=== PATIENT | female | born 1980 | race Caucasian/White ===

== ENCOUNTER → 2017-11-13 | Outpatient (REF) | payer BC ==
[2017-11-13 23:04] LABS: HCG, SERUM QUANTITATIVE 25803 MIU/ML
== END ==
LOC: M LAB REF 11-14 14:59
DX: N91.2 Amenorrhea, unspecified (principal)

== ENCOUNTER 2017-12-18 16:15 | Emergency (ER) | payer OTHER, BC ==
[2017-12-18] MEDS: D5W/0.45% SODIUM CHLORIDE 1,000 ML IV (16:45)
[2017-12-18] MEDS: NS 1,000 ML IV (17:09)
[2017-12-18] MEDS: PROMETHAZINE INJ 25 MG/ML VIAL (J2550) IV (17:09)
[2017-12-18 17:16] LABS: AMORPHOUS SEDIMENT RFX SMALL (NEGATIVE); KETONE, URINE AUTO RFX 1+ mg/dL (NEGATIVE); LEUKOCYTE ESTERASE UR AUTO RFX NEGATIVE (NEGATIVE); MUCUS, URINE RFX SMALL (NEGATIVE); NITRITE, URINE AUTO RFX NEGATIVE (NEGATIVE); RBC, URINE AUTO RFX 18 /HPF (0-3); SPECIFIC GRAVITY UR AUTO RFX 1.019 (1.002-1.035); SQUAM EPITHELIAL CELL UR AURFX 3 /HPF (0-6); WBC, URINE AUTO RFX 0 /HPF (0-3)
[2017-12-18 17:31] LABS: ANION GAP 8 MEQ/L (8-16); BLOOD UREA NITROGEN 8 MG/DL (7-18); CALCIUM LEVEL 9.1 MG/DL (8.5-10.1); CARBON DIOXIDE LEVEL 27 MEQ/L (21-32); CHLORIDE LEVEL 103 MEQ/L (98-107); CREATININE FOR GFR 0.63 MG/DL (0.55-1.30); GLOMERULAR FILTRATION RATE > 60.0 (>60); GLUCOSE, FASTING 79 MG/DL (70-100); POTASSIUM SERUM 4.1 MEQ/L (3.5-5.1); SODIUM LEVEL 138 MEQ/L (136-145)
== END 2017-12-18 19:38 | disposition home or self-care (01) ==
LOC: M ED 16:15
DX: O23.41 Unspecified infection of urinary tract in pregnancy, first trimester (principal); R82.71 Bacteriuria; Z3A.12 12 weeks gestation of pregnancy; O99.611 Diseases of the digestive system complicating pregnancy, first trimester; K50.90 Crohn's disease, unspecified, without complications; K52.9 Noninfective gastroenteritis and colitis, unspecified; Z93.3 Colostomy status
CPT/HCPCS: 80048

== ENCOUNTER → 2018-01-02 | Outpatient (CLI) | payer OTHER, MEDICAID ==
[2018-01-02 12:20] LABS: BASO # 0.1 10^3/uL (0.0-0.2); BASO % 0.5 % (0.0-1.0); EOS # 0.1 10^3/uL (0.0-0.50); EOS % 1.3 % (0.0-3.0); HEMATOCRIT 40.1 % (36.0-47.0); HEMOGLOBIN 13.8 g/dl (12.0-15.5); IMMATURE GRANULOCYTE % 0.3 % (0-3.0); LYMPH # 2.4 10^3/uL (1.5-4.5); LYMPH % 22.2 % (24.0-44.0); MEAN CORPUSCULAR HEMOGLOBIN 29.4 pg (27.0-33.0); MEAN CORPUSCULAR HGB CONC 34.4 g/dl (32.0-36.5); MEAN CORPUSCULAR VOLUME 85.3 fl (80.0-96.0); MONO # 0.5 10^3/uL (0.0-0.8); MONO % 4.7 % (0.0-5.0); NEUTROPHILS # 7.8 10^3/uL (1.8-7.7); PLATELET COUNT, AUTOMATED 240 10^3/uL (150-450); RED CELL DISTRIBUTION WIDTH 12.7 % (11.5-14.5); WHITE BLOOD COUNT 10.9 10^3/uL (4.0-10.0)
[2018-01-02 13:16] LABS: HEPATITIS C VIRUS ABY INDEX 0.1 INDEX (<0.8)
[2018-01-02 13:16] LABS: HBsAg Prenatal NEGATIVE (NEGATIVE); HIV 1&2 SCREEN CENTAUR NEGATIVE (NEGATIVE); RUBELLA IgG QUALITATIVE IMMUNE (IMMUNE)
[2018-01-02 14:02] LABS: CHLAMYDIA DNA AMPLIFICATION NEGATIVE (NEGATIVE); GC DNA AMPLIFICATION NEGATIVE (NEGATIVE)
== END ==
LOC: M WUC 09:25
DX: Z34.00 Encounter for supervision of normal first pregnancy, unspecified trimester (principal); Z36.89 Encounter for other specified antenatal screening; Z3A.10 10 weeks gestation of pregnancy
CPT/HCPCS: 86762

== ENCOUNTER → 2018-02-01 | Outpatient (CLI) | payer OTHER | LOC: M SMT 11:06 | DX: Z36.89 Encounter for other specified antenatal screening (principal); Z3A.18 18 weeks gestation of pregnancy | CPT/HCPCS: 76811 ==

== ENCOUNTER → 2018-02-27 | Outpatient (CLI) | payer OTHER ==
[~2018-02-27] MED LIST: KEFL500C17 PO; PREN1TAB18 PO; PROM25TA12 PO; ZOFR4TAB14 PO
--- NOTE | 2018-02-28 04:23 | REP ---
Clinical: Anatomical evaluation. Comparison: 02/01/2018 . Findings: Examination demonstrates a single live intrauterine in transverse (head to maternal right) presentation. motion is identified by technologist. Placenta is noted posterior and grade grade 1 without evidence for placenta previa or abruption. Amniotic fluid volume is normal. Cervix measures 5.0 cm in length and appears closed. No evidence for nuchal cord. Gestational age by LMP 22 weeks 1 day with MATT 07/02/2018 . Gestational age by current measurements 22 weeks 4 day with MATT 06/29/2018 . FHR equals 147 beats per minute. Estimated weight 545 grams ( 69th percentile). Anatomical assessment demonstrates normal structures including cranium, choroid plexus, cavum, cerebellum/posterior fossa, facial features, lungs, four-chamber heart/ left ventricular outflow tract, diaphragm, stomach, cord insertion/three-vessel cord, bladder, spine, and extremities. Limited evaluation of the right cardiac ventricular outflow tract again noted along with bilateral renal pelviectasis up to 4 mm. Impression: Single live intrauterine in transverse lie demonstrating appropriate interval growth. Limited evaluation of the right cardiac ventricular outflow tract along with mild bilateral renal pelviectasis noted. Remainder of the anatomical assessment is complete and normal. Electronically Signed by Milton Stratton MD 02/28/2018 04:14 A
== END ==
LOC: M SMT 09:36
PROVIDERS: ATTEND Advanced Practice Midwife
DX: Z36.89 Encounter for other specified antenatal screening (principal); Z3A.22 22 weeks gestation of pregnancy

== ENCOUNTER → 2018-03-22 | Outpatient (CLI) | payer OTHER ==
--- NOTE | 2018-03-22 12:08 | REP ---
Clinical: Anatomical evaluation. Comparison: 02/27/2018, 02/01/2018. Findings: Examination demonstrates a single live intrauterine in transverse (head to maternal right) presentation. motion is identified by technologist. Placenta is noted posterior and grade 1 without evidence for placenta previa or abruption. Amniotic fluid volume is normal. Cervix measures 4.0 cm in length and appears closed. No evidence for nuchal cord. Gestational age by first US 25 weeks 3 days with MATT 07/02/2018 . Gestational age by current measurements 26 weeks 1 day with MATT 06/27/2018 . FHR equals 147 beats per minute. Estimated weight 953 grams ( 74 percentile). Anatomical assessment demonstrates normal structures including cranium, choroid plexus, cavum, cerebellum/posterior fossa, facial features, lungs, four-chamber heart/left ventricular outflow tract, diaphragm, stomach, cord insertion/three-vessel cord, kidneys/bladder, spine, and extremities. Impression: 1. Single live intrauterine demonstrating appropriate interval growth. 2. In conjunction with prior examinations anatomical assessment is essentially complete and normal. However, continued poor evaluation of the right cardiac ventricular outflow tract is again noted. Electronically Signed by Milton Stratton MD 03/22/2018 11:59 A
== END ==
LOC: M SMT 10:34
PROVIDERS: ATTEND Obstetrics & Gynecology
DX: Z36.89 Encounter for other specified antenatal screening (principal); Z3A.26 26 weeks gestation of pregnancy

== ENCOUNTER → 2018-03-29 | Outpatient (CLI) | payer OTHER ==
[2018-03-29 17:09] LABS: HEMATOCRIT 39.6 % (36.0-47.0); HEMOGLOBIN 12.9 g/dl (12.0-15.5); MEAN CORPUSCULAR HEMOGLOBIN 29.1 pg (27.0-33.0); MEAN CORPUSCULAR HGB CONC 32.6 g/dl (32.0-36.5); MEAN CORPUSCULAR VOLUME 89.4 fl (80.0-96.0); PLATELET COUNT, AUTOMATED 231 10^3/uL (150-450); RED BLOOD COUNT 4.43 10^6/uL (4.00-5.40); WHITE BLOOD COUNT 11.6 10^3/uL (4.0-10.0)
== END ==
LOC: M SMT 12:59
PROVIDERS: ATTEND Obstetrics & Gynecology
DX: Z36.89 Encounter for other specified antenatal screening (principal)

== ENCOUNTER 2018-04-22 14:02 | Outpatient (CLI) | payer OTHER ==
[~2018-04-22] VITALS: Ht 165.1 cm; Wt 90.9 kg
[2018-04-22 14:25] VITALS: BP 129/77
[2018-04-22] MEDS ORDERED: ONDANSETRON 4MG/2ML VIAL (J2405) IV ONE (14:45)
[2018-04-22] MEDS ORDERED: LR 1,000 ML IV ONE (14:45)
--- NOTE | 2018-04-22 15:07 | IPNPDOC ---
Text Note Date of Service The patient was seen on 04/22/18. NOTE Subjective: Patient is a 37-year-old female who is a at 29.3 weeks gestation with an MATT of 07/05/2018 based off her 1st trimester ultrasound. She initiated care in her first trimester. Her has been complicated by Crohn's disease and her AMA status. She has an ileostomy in place. The patient presented to L&D with complaints of cramping in her mid-abdomen that started las t night around 1730. She reports she was unable to keep anything down since last night. The patient reports she is concerned that she has an intestinal blockage because she has had minimal drainage out of her ileostomy bag. She reports she called Dr. Quiroz who is her GI doctor in [place] but she was out of the office. She denies any lower cramping. She denies feeling any contractions, having leaking of fluid or vaginal bleeding. She reports active movement. Medical history: Crohn's disease with ileostomy; history abnormal pap; infertility with IVF and IUI without success. Surgical History: Leep 2004; ileostomy; cholecystectomy; uterectomy Social History: ; no history of abuse (emotional, physical, of sexual); no history of drug abuse or alcohol abuse; patient denies being a smoker. Objective: Labs and vital signs: see below. A+O x3; Respiratory rate is regular without use of accessory muscles; Abdomen: gravid, ileostomy bag present, no erythema around stoma, no tenderness with palpation of abdomen, soft to palpate. Speculum exam done: cervix is closed and thick. Vaginal discharge is thin and white. FFN obtained and sent. Assessment: IUP at 29.3 weeks gestation; Category I FHR tracing, nausea and vomiting Plan: Plan of care consulted with Dr. Silva. Labs obtained per recommendation. Given Zofran upon arrival and Phenergan after her ultrasound. The patient repo rts she is feeling better, has increased output in her ostomy bag, and was able to keep toast down without vomiting. Patient discharged to home. She has an appointment next week for routine OB care. Reviewed access to care, kick counts, labor signs, and danger signs to report. VS,Fishbone, I+O VS, Fishbone, I+O Vital Signs Label Value Date Time Patient Temperature 98.6 degrees F 04/22/18 1425 Temperature Source Temporal 04/22/18 1425 Pulse 94 04/22/18 1425 Respiratory Rate 16 bpm 04/22/18 1425 Blood Pressure Assessment 129/77 (94) 04/22/18 1425 Source Automatic Cuff (NIBP) Vital Signs Label Value Date Time Patient Temperature 98.7 degrees F 04/22/18 1712 Temperature Source Temporal 04/22/18 1712 Pulse 85 04/22/18 1712 Blood Pressure Assessment 133/73 (93) 04/22/18 1712 Source Automatic Cuff (NIBP) Respiratory Rate 16 bpm 04/22/18 1712 Item Value Date Time White Blood Count 10.1 10^3/uL H 04/22/18 1446 Red Blood Count 4.10 10^6/uL 04/22/18 1446 Hemoglobin 11.7 g/dl L 04/22/18 1446 Hematocrit 34.8 % L 04/22/18 1446 Mean Corpuscular Volume 84.9 fl 04/22/18 1446 Mean Corpuscular Hemoglobin 28.5 pg 04/22/18 1446 Mean Corpuscular Hemoglobin Concent 33.6 g/dl 04/22/18 1446 Red Cell Distribution Width 12.8 % 04/22/18 1446 Platelet Count 277 10^3/uL 04/22/18 1446 Nucleated Red Blood Cells % (auto) 0.0 % 04/22/18 1446 Item Value Date Time Sodium Level 138 MEQ/L 04/22/18 1446 Potassium Level 3.8 MEQ/L 04/22/18 1446 Chloride Level 104 MEQ/L 04/22/18 1446 Carbon Dioxide Level 22 MEQ/L 04/22/18 1446 Anion Gap 12 MEQ/L 04/22/18 1446 Blood Urea Nitrogen 10 MG/DL 04/22/18 1446 Creatinine 0.49 MG/DL L 04/22/18 1446 Glomerular Filtration Rate > 60.0 04/22/18 1446 Fasting Glucose 71 MG/DL 04/22/18 1446 Calcium Level 8.4 MG/DL L 04/22/18 1446 Total Bilirubin 0.4 MG/DL 04/22/18 1446 Aspartate Amino Transf (AST/SGOT) 97 U/L H 04/22/18 1446 Alanine Aminotransferase (ALT/SGPT) 79 U/L H 04/22/18 1446 Alkaline Phosphatase 254 U/L H 04/22/18 1446 Total Protein 7.3 GM/DL 04/22/18 1446 Albumin 2.9 GM/DL L 04/22/18 1446 Albumin/Globulin Ratio 0.66 L 04/22/18 1446 Amylase Level 100 U/L 04/22/18 1446 Lipase 182 U/L 04/22/18 1446 Item Value Date Time Fibronectin NEGATIVE 04/22/18 1846 Limited obstetric sonography: History: labor. Contractions. Findings: Limited obstetric sonography demonstrates a viable single intrauterine gestation in a cephalic lie. Close cervical length measures 2.9 cm measured transvaginally. No funneling is seen. heart rate is recorder 153 beats per minute. EMMETT MARTIN CNM Apr 22, 2018 15:07
[2018-04-22 15:45] LABS: HEMATOCRIT 34.8 % (36.0-47.0); HEMOGLOBIN 11.7 g/dl (12.0-15.5); MEAN CORPUSCULAR HEMOGLOBIN 28.5 pg (27.0-33.0); MEAN CORPUSCULAR HGB CONC 33.6 g/dl (32.0-36.5); MEAN CORPUSCULAR VOLUME 84.9 fl (80.0-96.0); PLATELET COUNT, AUTOMATED 277 10^3/uL (150-450); WHITE BLOOD COUNT 10.1 10^3/uL (4.0-10.0)
[2018-04-22 15:49] VITALS: BP 126/78
[2018-04-22 15:54] LABS: ALBUMIN 2.9 GM/DL (3.2-5.2); ALT/SGPT 79 U/L (12-78); AMYLASE 100 U/L (25-115); BILIRUBIN,TOTAL 0.4 MG/DL (0.2-1.0); BLOOD UREA NITROGEN 10 MG/DL (7-18); CALCIUM LEVEL 8.4 MG/DL (8.5-10.1); CARBON DIOXIDE LEVEL 22 MEQ/L (21-32); CHLORIDE LEVEL 104 MEQ/L (98-107); CREATININE FOR GFR 0.49 MG/DL (0.55-1.30); GLOMERULAR FILTRATION RATE > 60.0 (>60); GLUCOSE, FASTING 71 MG/DL (70-100); LIPASE 182 U/L (73-393); POTASSIUM SERUM 3.8 MEQ/L (3.5-5.1); SODIUM LEVEL 138 MEQ/L (136-145); TOTAL PROTEIN 7.3 GM/DL (6.4-8.2)
[2018-04-22 17:12] VITALS: BP 133/73
[2018-04-22] MEDS ORDERED: PROMETHAZINE INJ 25 MG/ML VIAL (J2550) IV ONE (18:00)
[2018-04-22 18:12] VITALS: BP 124/75
--- NOTE | 2018-04-22 18:40 | REP ---
Limited obstetric sonography: History: labor. Contractions. Findings: Limited obstetric sonography demonstrates a viable single intrauterine gestation in a cephalic lie. Close cervical length measures 2.9 cm measured transvaginally. No funneling is seen. heart rate is recorder 153 beats per minute. Electronically Signed by Manpreet Gamino MD 04/22/2018 06:45 P
[2018-04-22 20:25] VITALS: BP 126/68
== END 2018-04-22 20:34 | disposition home or self-care (01) ==
LOC: M LDO 14:02
PROVIDERS: ATTEND Advanced Practice Midwife
DX: O26.893 Other specified pregnancy related conditions, third trimester (principal); R10.30 Lower abdominal pain, unspecified; O99.612 Diseases of the digestive system complicating pregnancy, second trimester; K50.90 Crohn's disease, unspecified, without complications; Z93.2 Ileostomy status; O47.03 False labor before 37 completed weeks of gestation, third trimester; Z3A.29 29 weeks gestation of pregnancy
CPT/HCPCS: 59025; 76817; 80053; 82150; 82731; 83690; 85027; J2405

== ENCOUNTER → 2018-06-11 | Outpatient (CLI) | payer OTHER ==
[~2018-06-11] MED LIST changes: +REGL5TAB2 PO
[2018-06-11 19:09] LABS: ALT/SGPT 27 U/L (12-78); BILIRUBIN,TOTAL 0.3 MG/DL (0.2-1.0); CREATININE FOR GFR 0.79 MG/DL (0.55-1.30); GLOMERULAR FILTRATION RATE > 60.0 (>60); LDH LACTATE DEHYDROGENASE 189 U/L (84-246); URIC ACID 6.8 MG/DL (2.6-6.0)
[2018-06-11 19:12] LABS: CREATININE,RANDOM URINE 62.5 MG/DL; TOTAL PROTEIN,RANDOM URINE < 5.0 MG/DL (0.0-12.0)
[2018-06-11 19:16] LABS: HEMOGLOBIN 11.1 g/dl (12.0-15.5); MEAN CORPUSCULAR HEMOGLOBIN 27.1 pg (27.0-33.0); MEAN CORPUSCULAR HGB CONC 31.7 g/dl (32.0-36.5); MEAN CORPUSCULAR VOLUME 85.6 fl (80.0-96.0); PLATELET COUNT, AUTOMATED 176 10^3/uL (150-450); RED BLOOD COUNT 4.09 10^6/uL (4.00-5.40); WHITE BLOOD COUNT 9.6 10^3/uL (4.0-10.0)
== END ==
LOC: M SMT 13:21
PROVIDERS: ATTEND Advanced Practice Midwife
DX: O16.3 Unspecified maternal hypertension, third trimester (principal); Z3A.00 Weeks of gestation of pregnancy not specified

== ENCOUNTER → 2018-06-11 | Outpatient (REF) | payer OTHER | LOC: M LAB REF 18:31 | PROVIDERS: ATTEND Advanced Practice Midwife | DX: O09.513 Supervision of elderly primigravida, third trimester (principal); Z3A.00 Weeks of gestation of pregnancy not specified ==

== ENCOUNTER 2018-06-12 10:14 | Outpatient (CLI) | payer OTHER ==
[~2018-06-12] VITALS: Ht 165.1 cm; Wt 94.1 kg
[2018-06-12] VITALS (23 sets, daily range): BP systolic 127–160; BP diastolic 81–95
[~2018-06-12 10:14] MED LIST changes: -REGL5TAB2 PO
[2018-06-12] MEDS ORDERED: REGL5TAB2 PO (10:38)
--- NOTE | 2018-06-12 13:04 | NUR ---
Progress Note S: at 36 and 5/7 weeks with EDC of 07/05/18 based on 1st trimester sono. To L&D following office visit today for repeat BP check found to be elevated again today. Denies headache, visual disturbances, epigastric pain and RUQ discomfort. Denies contractions, vaginal bleeding and LOF. Fetus is active. PN care initiated at [facility] in 1st trimester. PN course complicated by AMA, crohn's disease with ostomy. Now currently complicated with diagnosis of gestational hypertension OB hx: primigravida. OB labs: O positive, antibody screen negative, Rubella immune, RPR non-reactive, HBsAG negative, Hep C antibody non-reactive, HIV negative, GC/CT negative. Declined genetic screening labs. GDS 103, GBS pending. PMHX:Crohn's Disease, abnormal pap, childhood varicella, infertility. Surgeries: Leep, colectomy, uterectomy, IUI, IVF Family Hx: Non-contributory Social Hx: , non-smoker, denies ETOH use and drug use. Hx of HPV, Denies hx of abuse, physical, sexual and emotional Allergies: NKDA Current medications: PNV O: T98, P77, R18, B/P 137/93, 127/91, 138/89 147/90 Labs from 06/11/18-CBC: Hgb-11.1, Hct-35.0, Plt-176, Ast-40, UNV056 Alk phos-256, uric acid=6.8, spot urine for protein-0.08 FHR difficult to trace at this time No pattern of regular contractions SVE: Deferred Bilat LE: +1 edema A: IUP at 36 5/7 weeks, Gestational hypertension P: Observe for the afternoon. Monitor BP. Scheduled for IOL at 37 weeks with FHR category I tracing.
--- NOTE | 2018-06-12 16:56 | NUR ---
PROGRESS NOTE FHR 135 with moderate variability, positive accels, no decels. No pattern of contractions. SVE deferred. Still denies headache, visual disturbances and epigastric pain. Plan to d/c to home. Scheduled for IOL at 37 weeks. Reviewed risks/benefits/alternatives. All questions answered. Reviewed s/sx of labor,FKC and danger signs or worsening gestational hypertension. Reviewed access to care. Patient agrees with plan.
== END 2018-06-12 16:55 | disposition home or self-care (01) ==
LOC: M LDO 10:14
PROVIDERS: ATTEND Advanced Practice Midwife
DX: O13.3 Gestational [pregnancy-induced] hypertension without significant proteinuria, third trimester (principal); Z3A.36 36 weeks gestation of pregnancy; R03.0 Elevated blood-pressure reading, without diagnosis of hypertension

== ENCOUNTER 2018-06-14 18:29 | Inpatient (IN) | payer OTHER ==
[~2018-06-14] VITALS: Ht 165.1 cm; Wt 65.0 kg
[2018-06-14] MEDS: miSOPROStol 50 MCG 1/2 TAB (S0191) PO SCH ×2 (03:25→20:19)
[~2018-06-14 18:29] MED LIST changes: +REGL5TAB2 PO
[2018-06-14 20:07] LABS: HEMATOCRIT 31.9 % (36.0-47.0); HEMOGLOBIN 10.2 g/dl (12.0-15.5); MEAN CORPUSCULAR HEMOGLOBIN 27.2 pg (27.0-33.0); MEAN CORPUSCULAR VOLUME 85.1 fl (80.0-96.0); PLATELET COUNT, AUTOMATED 165 10^3/uL (150-450); RED BLOOD COUNT 3.75 10^6/uL (4.00-5.40); WHITE BLOOD COUNT 8.4 10^3/uL (4.0-10.0)
[2018-06-14 20:18] LABS: ALT/SGPT 27 U/L (12-78); BILIRUBIN,TOTAL 0.3 MG/DL (0.2-1.0); GLOMERULAR FILTRATION RATE > 60.0 (>60); LDH LACTATE DEHYDROGENASE 192 U/L (84-246); URIC ACID 6.4 MG/DL (2.6-6.0)
--- NOTE | 2018-06-14 20:26 | HPE ---
DATE OF ADMISSION: 06/14/2018 Ana Lilia is a 37-year-old 1, para 0 at 37 weeks and 0 days gestation, estimated date of confinement (EDC) of 07/05/2018 based on first trimester ultrasound. She presents to labor and delivery today for induction of labor due to gestational hypertension. She denies any headache, visual disturbances, epigastric pain and right upper quadrant discomfort. She denies contractions, vaginal bleeding and leakage of fluid. The fetus has been active. Her care was initiated at [facility] in the first trimester. Her course complicated by advanced maternal age, a history of Crohn's disease that has been in remission for 10 years. She does currently have an ostomy tube in place and now gestational hypertension. PAST MEDICAL HISTORY: Crohn's disease. Abnormal Pap smear. Infertility. Childhood varicella. SURGERIES: Loop electrosurgical excision procedure (LEEP). Colectomy. Urectomy. Intrauterine insemination (IUI). In vitro fertilization (IVF). FAMILY HISTORY: Noncontributory. SOCIAL HISTORY: The patient is . Her is at bedside and supportive. She is a nonsmoker. Denies alcohol and drug use. History of positive HPV, high risk. Denies history of abuse - physical, sexual and emotional. ALLERGIES: No known drug allergies. CURRENT MEDICATIONS: vitamin. OBJECTIVE: Temperature 98.7, pulse 82, respirations 18, blood pressure 153/89. She is alert and oriented times three. heart rate is 150 with moderate variability, positive accelerations, no deceleration observed. No pattern of regular contractions. Her abdomen is gravid, cephalic presentation. Estimated weight 6 pounds. Sterile vaginal exam: Fingertip dilated, 80% effaced, -2 station, posterior. No bloody show with exam. She had pre-eclamptic labs done on 06/11/2018. AST 40, ALT 27, LDH 189, uric acid 6.8. Her spot one urine for protein was 0.08. Hemoglobin 11.1, hematocrit 35.0 and platelets 176. ASSESSMENT: Intrauterine at 37 weeks. heart rate category one. Gestational hypertension. PLAN: Admit the patient to labor and delivery. Out of bed ad fidencio. Regular diet right now. Routine labs with the addition of a pre-eclamptic profile repeated. IV access. The patient does desire an epidural for her labor coping when she is in active labor. I plan to start misoprostol 50 mcg every 4 hours for cervical ripening. I did review risks, benefits and alternatives to induction of labor. The patient and her have had all their questions answered and desire to proceed with induction. She has been verbally consented for emergency surgery and blood products if necessary. I do anticipate cervical ripening. MTDD
[2018-06-14 23:48] VITALS: BP 142/83
[2018-06-15] VITALS (47 sets, daily range): BP systolic 121–184; BP diastolic 61–104
[2018-06-15] MEDS ORDERED: PROMETHAZINE INJ 25 MG/ML VIAL (J2550) IM ONE (02:15)
[2018-06-15] MEDS ORDERED: BUTORPHANOL 2 MG/ML INJ (J0595) IV ONE (02:15)
[2018-06-15] MEDS ORDERED: PROMETHAZINE INJ 25 MG/ML VIAL (J2550) IV ONE (02:45)
[2018-06-15] MEDS ORDERED: TERBUTALINE SULFATE 1 MG/ML VIAL (J3105) As Ordered ONE (05:34)
[2018-06-15] MEDS ORDERED: TERBUTALINE SULFATE 1 MG/ML VIAL (J3105) SC ONE (05:45)
[2018-06-15] MEDS ORDERED: FENTANYL 2MCG/ML ROPIVACAINE 0.2% IN 0.9% NACL 100ML IVBAG As Ordered ONE (07:43)
[2018-06-15] MEDS ORDERED: EPIDURAL/PCA KEYS XX PRN (08:10)
[2018-06-15] MEDS ORDERED: diphenhydrAMINE INJ 50MG/ML VIAL (J1200) IV PRN (08:10)
[2018-06-15] MEDS ORDERED: NALOXONE INJ 0.4 MG/1 ML VIAL (J2310) IV PRN (08:10)
[2018-06-15] MEDS ORDERED: ePHEDrine SULFATE 25 MG/5 ML(5MG/ML) SYRINGE IV PRN (08:10)
[2018-06-15] MEDS ORDERED: ONDANSETRON 4MG/2ML VIAL (J2405) IV PRN (08:10)
[2018-06-15] MEDS ORDERED: EPIDURAL COMMENT XX SCH (08:10)
[2018-06-15] MEDS ORDERED: FENTANYL/ROPIVACAINE/NACL BAG 100 ML EPIDURAL SCH (08:10)
[2018-06-15] MEDS ORDERED: REFRIGERATOR IV KEYS XX PRN (08:10)
[2018-06-15] MEDS: LACTATED RINGER'S 1000 ML IV PRN ×3 (09:03→14:30)
[2018-06-15] MEDS ORDERED: OXYTOCIN DRIP 30 UNITS in APPROPRIATE DILUENT 1 EA IV SCH (10:00)
[2018-06-15 18:04] LABS: CORD GAS ABE A -12.2; CORD GAS HCO3 A 17.6 MEQ/L; CORD GAS O2 SAT A 27.6 %; CORD GAS PH A 7.124 UNITS; CORD GAS SBC A 13.8 MEQ/L; CORD GAS TCO2 A 19.3 MEQ/L
[2018-06-15 18:08] LABS: CORD GAS ABE V -10.8; CORD GAS HCO3 V 17.4 MEQ/L; CORD GAS O2 SAT V 48.8 %; CORD GAS PCO2 V 46.6 mmHg; CORD GAS PH V 7.19 UNITS; CORD GAS PO2 V 22.7 mmHg; CORD GAS SBC V 15.1 MEQ/L; CORD GAS TCO2 V 18.8 MEQ/L
[2018-06-15] MEDS ORDERED: METHYLERGONOVINE MALEATE 0.2 MG TAB PO PRN (18:45)
[2018-06-15] MEDS ORDERED: DIBUCAINE 1% OINTMENT 30GM TOP PRN (18:45)
[2018-06-15] MEDS ORDERED: MEASLES,MUMPS,RUBELLA VACCINE INJ (MMR-II) (90707) SC SCH (18:45)
[2018-06-15] MEDS ORDERED: RHOGAM 300 MCG (1500 IU) INJ (J2790) IM SCH (18:45)
[2018-06-15] MEDS ORDERED: LIDOCAINE 1% MDV 20ML VIAL INFIL ONE (18:45)
[2018-06-15] MEDS ORDERED: DOCUSATE SODIUM 100 MG CAP PO PRN (18:45)
[2018-06-15] MEDS ORDERED: OXYTOCIN DRIP 30 UNITS in APPROPRIATE DILUENT 1 EA IV ONE (18:45)
[2018-06-15] MEDS ORDERED: ACETAMINOPHEN 500 MG TAB PO PRN (18:45)
[2018-06-15] MEDS: IBUPROFEN 800 MG TAB PO PRN (20:55)
[2018-06-16 06:00] VITALS: BP 140/75
[2018-06-16] MEDS: IBUPROFEN 800 MG TAB PO PRN ×3 (08:04→18:25)
[2018-06-16] MEDS: PRENATAL VITAMINS CHEWABLE TABLET PO SCH (08:04)
[2018-06-16 18:00] VITALS: BP 142/74
[2018-06-17] MEDS: IBUPROFEN 800 MG TAB PO PRN (04:52)
[2018-06-17 04:58] VITALS: BP 124/72
[2018-06-17] MEDS: PRENATAL VITAMINS CHEWABLE TABLET PO SCH (08:41)
[2018-06-17] MEDS ORDERED: COLA100C5 PO (10:01)
[2018-06-17] MEDS ORDERED: MAPA500T2 PO (10:01)
[2018-06-17] MEDS ORDERED: IBUP-1114 PO (10:01)
--- NOTE | 2018-06-17 20:44 | DN ---
DATE: 06/15/2018 PREDELIVERY DIAGNOSES: 1. A 37-1/7 weeks gestation. 2. Labor induction 3. Gestational hypertension. POSTDELIVERY DIAGNOSIS: Delivered. PROCEDURE: Low forceps-assisted vaginal delivery. ACCELERATOR OPERATOR: Dr. Dong Desouza ANESTHESIA: Epidural ESTIMATED BLOOD LOSS: 300 mL. FINDINGS: A 6-pound 7-ounce male , 2920 grams, scores 8 and 9. Arterial blood gas 7.12, base excess -12.2, venous blood gas 7.19, base excess -10.8. Loose nuchal cord times one. DELIVERY SUMMARY: After approximately 50-minute second stage, the patient was diagnosed with tachycardia, absent variability, and repetitive variable decelerations. The decision was made to assist the patient with forceps. Twin-Josias and [place]uk[place] forceps were applied to the asynclitic right occiput anterior (GARY) vertex without difficulty. Delivery was accompanied with single-control traction along with maternal effort. Loose nuchal cord times one was reduced manually. The shoulders delivered with ease. The cord was doubly clamped and cut. The infant was handed off to the awaiting strand galvanizer. The placenta delivered spontaneously and appeared to be intact. The patient received intravenous (IV) Pitocin immediately after delivery of the placenta. A right sulcus tear and second-degree perineal laceration were repaired with 2-0 chromic under local anesthesia in the usual fashion. Rectal exam was normal, as expected. Sponge and needle counts were correct.
== END 2018-06-17 10:55 | disposition home or self-care (01) | DRG 560 ==
LOC: M LDI 18:29 → M OBS 06-15 21:11
PROVIDERS: ADMIT Advanced Practice Midwife; ATTEND Specialist
PROC: 3E0P7GC Introduction of Other Therapeutic Substance into Female Reproductive, Via Natural or Artificial Opening (ICD-10-PCS; 2018-06-14)
PROC: 10D07Z3 Extraction of Products of Conception, Low Forceps, Via Natural or Artificial Opening (ICD-10-PCS; principal; 2018-06-15)
PROC: 0KQM0ZZ Repair Perineum Muscle, Open Approach (ICD-10-PCS; 2018-06-15)
DX: O13.4 Gestational [pregnancy-induced] hypertension without significant proteinuria, complicating childbirth (principal); Z3A.37 37 weeks gestation of pregnancy; Z93.3 Colostomy status; Z37.0 Single live birth; O70.1 Second degree perineal laceration during delivery; O76 Abnormality in fetal heart rate and rhythm complicating labor and delivery; O69.81X0 Labor and delivery complicated by cord around neck, without compression, not applicable or unspecified

== ENCOUNTER → 2018-12-27 | Outpatient (CLI) | payer OTHER ==
[~2018-12-27] MED LIST changes: +COLA100C5 PO; +IBUP-1114 PO; +MAPA500T2 PO
[2018-12-27 17:30] LABS: BASO # 0.1 10^3/uL (0.0-0.2); BASO % 0.6 % (0.0-1.0); EOS # 0.2 10^3/uL (0.0-0.5); EOS % 1.8 % (0.0-3.0); HEMATOCRIT 39.8 % (36.0-47.0); HEMOGLOBIN 12.8 g/dl (12.0-15.5); LYMPH # 2.5 10^3/uL (1.5-5.0); LYMPH % 24.2 % (24.0-44.0); MEAN CORPUSCULAR HEMOGLOBIN 28.3 pg (27.0-33.0); MEAN CORPUSCULAR HGB CONC 32.2 g/dl (32.0-36.5); MEAN CORPUSCULAR VOLUME 87.9 fl (80.0-96.0); MONO # 0.6 10^3/uL (0.0-0.8); MONO % 5.6 % (0.0-5.0); NEUTROPHILS # 6.9 10^3/uL (1.5-8.5); NEUTROPHILS % 67.5 % (36.0-66.0); PLATELET COUNT, AUTOMATED 258 10^3/uL (150-450); RED BLOOD COUNT 4.53 10^6/uL (4.00-5.40); WHITE BLOOD COUNT 10.2 10^3/uL (4.0-10.0)
[2018-12-27 17:36] LABS: ALT/SGPT 25 U/L (12-78); BILIRUBIN,TOTAL 0.4 MG/DL (0.2-1.0); CREATININE FOR GFR 0.49 MG/DL (0.55-1.30); GLOMERULAR FILTRATION RATE > 60.0 (>60); LDH LACTATE DEHYDROGENASE 151 U/L (84-246); URIC ACID 2.8 MG/DL (2.6-6.0)
[2018-12-27 17:55] LABS: RUBELLA IgG QUALITATIVE IMMUNE (IMMUNE); TOTAL PROTEIN,RANDOM URINE 9.8 MG/DL (0.0-12.0)
[2018-12-27 18:24] LABS: HIV 1&2 SCREEN CENTAUR NEGATIVE (NEGATIVE)
[2018-12-27 18:41] LABS: CHLAMYDIA DNA AMPLIFICATION NEGATIVE (NEGATIVE); GC DNA AMPLIFICATION NEGATIVE (NEGATIVE)
== END ==
LOC: M SMT 13:09
PROVIDERS: ATTEND Advanced Practice Midwife
DX: Z36.89 Encounter for other specified antenatal screening (principal)

== ENCOUNTER → 2019-02-03 | Outpatient (CLI) | payer OTHER ==
--- NOTE | 2019-02-03 15:42 | REP ---
Obstetric sonography: History: Supervision of for anatomy. Findings: Scanning through the gravid uterus demonstrates a viable single intrauterine gestation in a cephalic lie. motion is observed and heart rate is recorded at 141 beats per minute. An anterior grade 0 placenta is seen without evidence of previa or abruption. Amniotic fluid is subjectively normal. Closed cervical length is 3.4 cm. No extrauterine abnormalities observed. Scan quality was inhibited to some degree by the presence of an ostomy bag in the patient's right flank. No anomaly is seen. The following anatomic structures are less than optimally seen due to position: cavum, face and profile, left and right ventricular outflow tract views, three-vessel cord, upper and lower extremities. The following anatomic structures are identified and felt to be unremarkable: cranium, choroid plexus, cerebellum and posterior fossa, lungs, four-chamber heart, diaphragm, left-sided stomach, abdominal wall cord insertion, kidneys and bladder, spine. Biometry chart: BPD 4.1 cm = 18 weeks 3 days Head circumference 15.4 cm = 18 weeks 2 days Abdominal circumference 12.9 cm = 18 weeks 3 days Femur length 2.8 cm = 18 weeks 3 days Humeral length 2.7 cm = 18 weeks 4 days HC/AC ratio normal 1.19. Cephalic index normal 0.74. Estimated weight 240 grams, 0 pounds 8 ounces, 40th percentile for 18 weeks 4 days. Impression: Viable single intrauterine gestation at 18 weeks 3 days by today's composite sonographic criteria. MATT by today's sonography July 04, 2019. anatomic survey is less than complete as above. Electronically Signed by Manpreet Gamino MD 02/03/2019 03:59 P
== END ==
LOC: M RAD 13:56
PROVIDERS: ATTEND Advanced Practice Midwife
DX: O09.522 Supervision of elderly multigravida, second trimester (principal); Z3A.18 18 weeks gestation of pregnancy; Z93.3 Colostomy status

== ENCOUNTER → 2019-02-21 | Outpatient (CLI) | payer OTHER ==
--- NOTE | 2019-02-21 12:08 | REP ---
Clinical: Anatomical evaluation. Comparison: 02/03/2019 . Findings: Examination demonstrates a single live intrauterine in transverse (head to maternal right) presentation. motion is identified by technologist. Placenta is noted anterior and grade zero without evidence for placenta previa or abruption. Amniotic fluid volume is normal. Cervix measures 3.9 cm in length and appears closed. No evidence for nuchal cord. Gestational age by LMP 21 weeks 1 day with MATT 07/03/2019 . Gestational age by current measurements 21 weeks 1 day with MATT 07/03/2019 . FHR equals 158 beats per minute. Estimated weight 406 grams ( 50th percentile). Anatomical assessment demonstrates normal structures including cranium, choroid plexus, cavum, cerebellum/posterior fossa, facial profile, lungs, four-chamber heart/left ventricular outflow tract, diaphragm, stomach, cord insertion/three-vessel cord, kidneys/bladder, spine, and extremities. Limited evaluation of the facial features and right cardiac ventricular outflow tract. Impression: 1. Single live intrauterine in transverse lie demonstrating appropriate interval growth. 2. Continued limited evaluation of the facial features and right cardiac ventricular outflow tract. Remainder of the anatomical assessment is complete and normal. Electronically Signed by Milton Stratton MD 02/21/2019 11:59 A
== END ==
LOC: M RAD 10:50
PROVIDERS: ATTEND Advanced Practice Midwife
DX: Z36.89 Encounter for other specified antenatal screening (principal); Z3A.21 21 weeks gestation of pregnancy

== ENCOUNTER 2019-03-21 18:12 | Emergency (ER) | payer OTHER ==
[~2019-03-21] VITALS: Ht 162.6 cm; Wt 91.2 kg
[2019-03-21] MEDS ORDERED: ONDA-83 (18:18)
[2019-03-21] MEDS ORDERED: OSEL75CA2 (18:18)
[2019-03-21] MEDS ORDERED: NS 1,000 ML IV ONE (20:45)
[2019-03-21] MEDS: ALBUTEROL SULFATE 2.5 MG/0.5 ML INH NEB SOLN INH PRN ×2 (21:20→22:24)
[2019-03-21 22:04] LABS: BASO % 0.3 % (0.0-1.0); EOS % 0.4 % (0.0-3.0); HEMATOCRIT 36.3 % (36.0-47.0); HEMOGLOBIN 11.5 g/dl (12.0-15.5); LYMPH # 1.8 10^3/uL (1.5-5.0); LYMPH % 24.8 % (24.0-44.0); MEAN CORPUSCULAR HEMOGLOBIN 28.3 pg (27.0-33.0); MEAN CORPUSCULAR HGB CONC 31.7 g/dl (32.0-36.5); MEAN CORPUSCULAR VOLUME 89.4 fl (80.0-96.0); MONO # 0.5 10^3/uL (0.0-0.8); NEUTROPHILS # 4.9 10^3/uL (1.5-8.5); NEUTROPHILS % 66.9 % (36.0-66.0); PLATELET COUNT, AUTOMATED 163 10^3/uL (150-450); RED BLOOD COUNT 4.06 10^6/uL (4.00-5.40); WHITE BLOOD COUNT 7.3 10^3/uL (4.0-10.0)
[2019-03-21] MEDS ORDERED: methylPREDNISolone INJ 125 MG/2 ML VIAL (J2930) IV ONE (22:15)
[2019-03-21 22:44] LABS: ALBUMIN 2.8 GM/DL (3.2-5.2); ALT/SGPT 17 U/L (12-78); BILIRUBIN,DIRECT < 0.1 MG/DL (0.0-0.2); BILIRUBIN,TOTAL 0.2 MG/DL (0.2-1.0); BLOOD UREA NITROGEN 5 MG/DL (7-18); CALCIUM LEVEL 7.8 MG/DL (8.5-10.1); CARBON DIOXIDE LEVEL 22 MEQ/L (21-32); CHLORIDE LEVEL 103 MEQ/L (98-107); CREATININE FOR GFR 0.53 MG/DL (0.55-1.30); GLOMERULAR FILTRATION RATE > 60.0 (>60); GLUCOSE, FASTING 73 MG/DL (70-100); NT-PRO BNP 15 PG/ML (<125); POTASSIUM SERUM 3.6 MEQ/L (3.5-5.1); SODIUM LEVEL 138 MEQ/L (136-145); TOTAL PROTEIN 6.6 GM/DL (6.4-8.2)
[2019-03-21] MEDS ORDERED: VENTAER INH (23:29)
[2019-03-21 23:37] VITALS: BP 139/66
== END 2019-03-22 00:05 | disposition home or self-care (01) ==
LOC: M ED 18:12
DX: O98.512 Other viral diseases complicating pregnancy, second trimester (principal); J09.X2 Influenza due to identified novel influenza A virus with other respiratory manifestations; R06.02 Shortness of breath; Z3A.25 25 weeks gestation of pregnancy
CPT/HCPCS: 36415; 80048; 80076; 83605; 83880; 85025; 96361; 96374; 99284; J2930

== ENCOUNTER → 2019-04-01 | Outpatient (CLI) | payer OTHER ==
[~2019-04-01] MED LIST changes: +ONDA-83; +OSEL75CA2; +VENTAER INH
--- NOTE | 2019-04-01 12:33 | REP ---
Clinical: Anatomical evaluation. Comparison: 02/21/2019 . Findings: Examination demonstrates a single live intrauterine in transverse (head to maternal left) presentation. motion is identified by technologist. Placenta is noted anterior and grade zero without evidence for placenta previa or abruption. Amniotic fluid volume is normal. Cervix measures 4.4 cm in length and appears closed. No evidence for nuchal cord. Gestational age by LMP 26 weeks 5 days with MATT 07/03/2019 . Gestational age by current measurements 25 weeks 2 days. FHR equals 143 beats per minute. Estimated weight 178 grams ( 24th percentile). Anatomical assessment demonstrates normal structures including facial features. Continued limited evaluation of the right cardiac ventricular outflow tract noted. Impression: 1. Single live intrauterine in transverse lie demonstrating appropriate interval growth. 2. Facial features are now identified and normal. The right cardiac ventricular outflow tract is again limited in evaluation due to motion / positioning and limited scan window due to the patient's colostomy.
== END ==
LOC: M WHC 09:51
PROVIDERS: ATTEND Advanced Practice Midwife
DX: Z36.2 Encounter for other antenatal screening follow-up (principal)

== ENCOUNTER → 2019-04-04 | Outpatient (CLI) | payer OTHER ==
[2019-04-04 18:06] LABS: HEMATOCRIT 37.3 % (36.0-47.0); HEMOGLOBIN 12.1 g/dl (12.0-15.5); MEAN CORPUSCULAR HEMOGLOBIN 28.7 pg (27.0-33.0); MEAN CORPUSCULAR HGB CONC 32.4 g/dl (32.0-36.5); MEAN CORPUSCULAR VOLUME 88.6 fl (80.0-96.0); PLATELET COUNT, AUTOMATED 347 10^3/uL (150-450); RED BLOOD COUNT 4.21 10^6/uL (4.00-5.40); WHITE BLOOD COUNT 13.6 10^3/uL (4.0-10.0)
== END ==
LOC: M PLALAB 13:07
PROVIDERS: ATTEND Advanced Practice Midwife
DX: Z34.92 Encounter for supervision of normal pregnancy, unspecified, second trimester (principal)

== ENCOUNTER → 2019-04-09 | Outpatient (CLI) | payer OTHER ==
[2019-04-09 18:28] LABS: HEMATOCRIT 35.9 % (36.0-47.0); HEMOGLOBIN 11.6 g/dl (12.0-15.5); MEAN CORPUSCULAR HEMOGLOBIN 28.5 pg (27.0-33.0); MEAN CORPUSCULAR HGB CONC 32.3 g/dl (32.0-36.5); MEAN CORPUSCULAR VOLUME 88.2 fl (80.0-96.0); PLATELET COUNT, AUTOMATED 300 10^3/uL (150-450); RED BLOOD COUNT 4.07 10^6/uL (4.00-5.40); WHITE BLOOD COUNT 10.6 10^3/uL (4.0-10.0)
[2019-04-09 18:52] LABS: TOTAL PROTEIN,RANDOM URINE 16.3 MG/DL (0.0-12.0)
[2019-04-09 19:00] LABS: ALT/SGPT 25 U/L (12-78); BILIRUBIN,TOTAL 0.3 MG/DL (0.2-1.0); CREATININE FOR GFR 0.46 MG/DL (0.55-1.30); GLOMERULAR FILTRATION RATE > 60.0 (>60); LDH LACTATE DEHYDROGENASE 119 U/L (84-246); URIC ACID 3.7 MG/DL (2.6-6.0)
== END ==
LOC: M PLALAB 14:35
PROVIDERS: ATTEND Advanced Practice Midwife
DX: O16.2 Unspecified maternal hypertension, second trimester (principal)

== ENCOUNTER → 2019-04-16 | Outpatient (CLI) | payer OTHER ==
--- NOTE | 2019-04-16 15:07 | REP ---
Surgical ultrasound for follow-up of anatomy: Prior studies. The right cardiac ventricular outflow tract could not be satisfactorily demonstrated. The remainder of the anatomy was unremarkable. On the study today the cardiac right ventricular outflow tract is adequately demonstrated and unremarkable. The remainder of the anatomy was previously demonstrated and unremarkable. There are no anomalies. There is a single intrauterine gestation in a vertex presentation. There is movement and cardiac activity. The heart rate is 147 beats minute. Placenta is anterior. There is no placenta previa or placental abruptio. The placenta is grade 1. The amniotic fluid volume subjectively is normal. The heart rate is 147 beats per minute. The cervix measures 4.9 cm. Gestational age by today's ultrasound is 29 weeks 0 days. Gestational age by the first ultrasound of 28 weeks 6 days. Gestational age by LMP is 28 weeks 6 days. The selected gestational age is 28 weeks 6 days./MATT is 07/03/2019. weight is 1363 grams/3 pounds, 0 ounces. This is the 50th percentile for 20 weeks 6 days. Electronically Signed by Chaim Saenz MD 04/16/2019 02:59 P
== END ==
LOC: M WHC 10:34
PROVIDERS: ATTEND Advanced Practice Midwife
DX: Z36.2 Encounter for other antenatal screening follow-up (principal); O09.522 Supervision of elderly multigravida, second trimester; Z3A.29 29 weeks gestation of pregnancy

== ENCOUNTER → 2019-05-27 | Outpatient (REF) | payer OTHER ==
[2019-05-27 17:56] LABS: HEMATOCRIT 35.5 % (36.0-47.0); HEMOGLOBIN 11.4 g/dl (12.0-15.5); MEAN CORPUSCULAR HEMOGLOBIN 27.3 pg (27.0-33.0); MEAN CORPUSCULAR HGB CONC 32.1 g/dl (32.0-36.5); MEAN CORPUSCULAR VOLUME 85.1 fl (80.0-96.0); PLATELET COUNT, AUTOMATED 244 10^3/uL (150-450); RED BLOOD COUNT 4.17 10^6/uL (4.00-5.40); WHITE BLOOD COUNT 11.1 10^3/uL (4.0-10.0)
[2019-05-27 18:18] LABS: TOTAL PROTEIN,RANDOM URINE 13.6 MG/DL (0.0-12.0)
[2019-05-27 18:19] LABS: ALT/SGPT 15 U/L (12-78); BILIRUBIN,TOTAL 0.5 MG/DL (0.2-1.0); CREATININE FOR GFR 0.57 MG/DL (0.55-1.30); GLOMERULAR FILTRATION RATE > 60.0 (>60); LDH LACTATE DEHYDROGENASE 141 U/L (84-246); URIC ACID 3.7 MG/DL (2.6-6.0)
== END ==
LOC: M PLALAB 14:56
PROVIDERS: ATTEND Advanced Practice Midwife
DX: O09.523 Supervision of elderly multigravida, third trimester (principal)

== ENCOUNTER → 2019-06-05 | Outpatient (REF) | payer OTHER | LOC: M PLALAB 10:03 | PROVIDERS: ATTEND Advanced Practice Midwife | DX: O09.523 Supervision of elderly multigravida, third trimester (principal) ==

== ENCOUNTER 2019-06-19 16:01 | Inpatient (IN) | payer OTHER ==
[~2019-06-19] VITALS: Ht 162.6 cm; Wt 100.0 kg
--- NOTE | 2019-06-19 17:00 | HPEPDOC ---
Obstetrical History & Physical General Date of Admission Jun 19, 2019 at 16:01 History of Present Illness 38-year-old 2, para 1 presents at 30 weeks 0 days estimated gestational age by her last history. Confirmed by first trimester ultrasound for induction labor secondary to gestational hypertension. She presented to the office today which was noted to have serial elevated blood pressures. She denies any vaginal bleeding, leakage fluid or regular pattern of contractions. This is been unremarkable. She initiated care first trimesters been appropriate throughout. Her history significant for Crohn's disease, which is in remission. She has ostium in place. Advanced maternal age and history of gestational hypertension Chief Complaint: Gestational Hypertension Information Provided By: Patient Age: 38 : 2 Term: 1 Livin Care Care: Good Care Dating Final EDC: July 03, 2019 Final EDC by: LMP LMP: Sep 26, 2018 Past Medical History Past Obstetrical History : Past Obstetrical History: Multigravida Type of Delivery: Spontaneous Vaginal Del. Sex of : Male CRIBBER History: Abnormal Pap Past Medical History Medical History Crohn's disease Surgical History: Other (colostomy, left oophorectomy and LEEP) Social History Psychosocial History: No pertinent psych hx * Smoker: non-smoker Alcohol: Denies Allergies Coded Allergies: No Known Drug Allergies (Verified Allergy, Unknown, 06/12/18) Medications Scheduled Pnv No.95/Ferrous Fum/Folic AC ( Vitamin Tablet) 1 Tab Tab, 1 TAB PO DAILY Physical Examination Physical Examination GENERAL: Alert and oriented times three. BREAST: . ABDOMEN: Gravid and non-tender to touch. FETUS: Is vertex (VTX) by sterile vaginal examination (SVE), fetus is vertex (VTX) by Abhinav. HEART RATE: Regular rate and rhythm. LUNGS: Clear to auscultation (CTA). Laboratory Data 24H LABS Laboratory Tests 2 06/19/19 16:24: Serology Scanned Report Hepatitis B Testing Pertinent Laboratoy Data Blood Type: O+ RBC Antibody Screen: Negative HIV: Negative Hepatitis B: Negative Hepatitis C: Negative Rapid Plasma Reagin: Nonreactive Rubella: Immune Chlamydia/Gonorrhea: Negative Group B Streptococcus: Negative Anatomy Ultrasound Placenta Location: Anterior Normal Anatomy: Yes Vaginal Examination Dilation: 1cm Effacement: 50% Station: -3 Presentation: Cephalic presentation Assessment Variability: Moderate Accelerations: Positive Decelerations: None Tocometer Contractions: No Assessment/Plan Assessment 38-year-old 2, para 1 at 30 weeks 0 days estimated gestational age, here for induction labor for just gestational hypertension. Currently stable. Reassuring status Plan Admit and orient. Evaluation Specialist and consent. Diet: Regular. Group B Streptococcus (GBS) negative. Labs and intravenous (IV) per unit protocol. Counseled on Pitocin and induction of labor (IOL). Anticipate normal spontaneous delivery (). C-S as appropriate. Labor and Delivery Counseling Patient's been thoroughly counseled regards, induction labor. Discussed medica tions procedures performed labor and delivery. She is been verbally consented for emergency surgery, blood products anesthesia and delivery, which is been answered. She desires to proceed with induction of labor. We'll initiate her induction labor with oral misoprostol IAN ELAM MD. Jun 19, 2019 17:00
[2019-06-19 17:02] VITALS: BP 128/62
[2019-06-19] MEDS: miSOPROStol 50 MCG 1/2 TAB (S0191) PO SCH ×2 (17:31→21:35)
[2019-06-19 18:01] LABS: HEMATOCRIT 32.6 % (36.0-47.0); HEMOGLOBIN 10.4 g/dl (12.0-15.5); MEAN CORPUSCULAR HEMOGLOBIN 26.2 pg (27.0-33.0); MEAN CORPUSCULAR HGB CONC 31.9 g/dl (32.0-36.5); MEAN CORPUSCULAR VOLUME 82.1 fl (80.0-96.0); PLATELET COUNT, AUTOMATED 233 10^3/uL (150-450); RED BLOOD COUNT 3.97 10^6/uL (4.00-5.40); WHITE BLOOD COUNT 10.5 10^3/uL (4.0-10.0)
[2019-06-19 18:21] LABS: ALT/SGPT 18 U/L (12-78); BILIRUBIN,TOTAL 0.4 MG/DL (0.2-1.0); CREATININE FOR GFR 0.48 MG/DL (0.55-1.30); GLOMERULAR FILTRATION RATE > 60.0 (>60); LDH LACTATE DEHYDROGENASE 152 U/L (84-246); URIC ACID 4.7 MG/DL (2.6-6.0)
[2019-06-19 18:26] VITALS: BP 115/63
[2019-06-19 19:23] VITALS: BP 131/75
[2019-06-19 21:34] VITALS: BP 130/79
[2019-06-19] MEDS ORDERED: CALCIUM CARBONATE 500 MG CHEW U/D PO PRN (21:45)
[2019-06-20] VITALS (10 sets, daily range): BP systolic 115–141; BP diastolic 61–94
[2019-06-20] MEDS ORDERED: FENTANYL 2MCG/ML ROPIVACAINE 0.2% IN 0.9% NACL 100ML IVBAG As Ordered ONE (00:27)
[2019-06-20] MEDS ORDERED: FENTANYL/ROPIVACAINE/NACL BAG 100 ML EPIDURAL SCH (00:45)
[2019-06-20] MEDS ORDERED: diphenhydrAMINE 50MG/ML VIAL (J1200) IV PRN (00:45)
[2019-06-20] MEDS ORDERED: REFRIGERATOR IV KEYS XX PRN (00:45)
[2019-06-20] MEDS ORDERED: LACTATED RINGER'S 1000 ML IV PRN (00:45)
[2019-06-20] MEDS ORDERED: EPIDURAL/PCA KEYS XX PRN (00:45)
[2019-06-20] MEDS ORDERED: NALOXONE INJ 0.4MG/1ML VIAL (J2310 PER 1MG) IV PRN (00:45)
[2019-06-20] MEDS ORDERED: ePHEDrine SULFATE 25 MG/5 ML(5MG/ML) SYRINGE IV PRN (00:45)
[2019-06-20] MEDS ORDERED: EPIDURAL COMMENT XX SCH (00:45)
[2019-06-20] MEDS ORDERED: OXYTOCIN 30 UNITS IN 0.9% NaCl 500ML IV BAG (J2590) As Ordered ONE (01:08)
[2019-06-20] MEDS ORDERED: OXYTOCIN DRIP 30 UNITS in IV 1 EA IV SCH (01:19)
--- NOTE | 2019-06-20 01:24 | DNPDOC ---
[facility] Delivery Note Delivery Note DATE OF DELIVERY: 06/20/2019 TIME OF : 0101 GENDER:, Female. APGARS:, 9 and 9. WEIGHT: 2900 grams or 6 pounds 6 ounces. LACERATIONS: First-degree midline laceration ANESTHESIA:. None. ESTIMATED BLOOD LOSS: 300ml COUNTS: 5 laparotomy sponges accounted for prior to after delivery. Three sharps removed delivery field. DELIVERY NOTE: 06/20/2019. Mrs Turner a 38-year-old 2 now para 2, had a spontaneous vaginal delivery of viable female infant, Apgars, 9 and 9. Weight was 2900 g or 6 lbs. 6 oz. Head was delivered occiput anterior (OA). Shoulders delivered followed by corpus. was handed to mom with a good cry. Cord was clamped times two and was cut. Placenta was then drained and delivered grossly intact. A premixed bag of 500 mL of normal saline with 30 units of Pitocin was then bolused along with uterine massage until the uterus was firm. On inspection,. There was a first-degree midline laceration which was infused with 1% lidocaine and then repaired with 3-0 Vicryl. On reinspection, cervix, vagina, perineum was grossly intact and hemostatic. Mom and baby in recovery on stable condition. The couples decided to remain in daughter, IAN Linder MD. June 20, 2019 01:23
[2019-06-20] MEDS ORDERED: MEASLES,MUMPS,RUBELLA VACCINE INJ (MMR-II) (90707) SC SCH (01:30)
[2019-06-20] MEDS ORDERED: DIBUCAINE 1% OINTMENT 30GM TOP PRN (01:30)
[2019-06-20] MEDS ORDERED: IBUPROFEN 800 MG TAB PO PRN (01:30)
[2019-06-20] MEDS ORDERED: RHOGAM 300 MCG (1500 IU) INJ (J2790) IM SCH (01:30)
[2019-06-20] MEDS ORDERED: ANUSOL HC CREAM 30GM TOP PRN (01:30)
[2019-06-20] MEDS ORDERED: ACETAMINOPHEN 500 MG TAB PO PRN (01:30)
[2019-06-20] MEDS ORDERED: IBUPROFEN 600 MG TAB PO PRN (01:30)
[2019-06-20] MEDS ORDERED: DOCUSATE SODIUM 100 MG CAP PO PRN (01:30)
[2019-06-20] MEDS ORDERED: MOM 30ML SUSPENSION UDC PO PRN (01:30)
[2019-06-20] MEDS ORDERED: METHYLERGONOVINE MALEATE 0.2 MG TAB PO PRN (01:30)
[2019-06-20] MEDS ORDERED: LIDOCAINE 1% MDV 20ML VIAL SC ONE (01:45)
[2019-06-20] MEDS: ONDANSETRON 4MG/2ML VIAL IV SCH ×6 (03:30→23:30)
[2019-06-20] MEDS: PRENATAL VITAMINS CHEWABLE TABLET PO SCH (08:37)
[2019-06-20] MEDS: ACETAMINOPHEN TAB 650MG DOSE (2X325MG) PO PRN ×4 (08:37→22:15)
[2019-06-21] MEDS: ACETAMINOPHEN TAB 650MG DOSE (2X325MG) PO PRN ×2 (02:56→15:17)
[2019-06-21] MEDS: ONDANSETRON 4MG/2ML VIAL IV SCH ×3 (03:30→11:19)
[2019-06-21 05:05] VITALS: BP 120/64
[2019-06-21] MEDS: PRENATAL VITAMINS CHEWABLE TABLET PO SCH (08:47)
== END 2019-06-21 15:20 | disposition home or self-care (01) | DRG 560 ==
LOC: M LDI 16:01 → M OBS 06-20 02:58
PROVIDERS: ADMIT Obstetrics & Gynecology; ATTEND Obstetrics & Gynecology
PROC: 3E0DXGC Introduction of Other Therapeutic Substance into Mouth and Pharynx, External Approach (ICD-10-PCS; 2019-06-19)
PROC: 10E0XZZ Delivery of Products of Conception, External Approach (ICD-10-PCS; principal; 2019-06-20)
PROC: 0HQ9XZZ Repair Perineum Skin, External Approach (ICD-10-PCS; 2019-06-20)
DX: O13.4 Gestational [pregnancy-induced] hypertension without significant proteinuria, complicating childbirth (principal); O09.523 Supervision of elderly multigravida, third trimester; Z3A.30 30 weeks gestation of pregnancy

== ENCOUNTER → 2021-07-20 | Outpatient (REF) | payer OTHER ==
[2021-07-20 17:34] LABS: APPEARANCE, URINE HAZY (CLEAR); BACTERIA, URINE AUTO 1+ (NEGATIVE); BILIRUBIN, URINE AUTO NEGATIVE (NEGATIVE); BLOOD, URINE BLOOD NEGATIVE (NEGATIVE); COLOR, URINE YELLOW (YELLOW); GLUCOSE, URINE (UA) AUTO NEGATIVE (NEGATIVE); KETONE, URINE AUTO NEGATIVE (NEGATIVE); LEUKOCYTE ESTERASE, URINE AUTO 1+ (NEGATIVE); MUCUS, URINE SMALL (NEGATIVE); NITRITE, URINE AUTO NEGATIVE (NEGATIVE); PROTEIN, URINE AUTO NEGATIVE (NEGATIVE); RBC, URINE AUTO 0 /HPF (0-3); SPECIFIC GRAVITY URINE AUTO 1.018 (1.002-1.035); SQUAMOUS EPITHELIAL CELL UR AU 1 /HPF (0-6); UROBILINOGEN, URINE AUTO 0.2 mg/dL (0.0-2.0); WBC, URINE AUTO 0 /HPF (0-3)
== END ==
LOC: M LAB REF 16:19
PROVIDERS: ATTEND Physician Assistant
DX: N39.0 Urinary tract infection, site not specified (principal)

== ENCOUNTER → 2021-08-08 | Outpatient (REF) | payer OTHER | LOC: M PLALAB 07:58 | PROVIDERS: ATTEND Advanced Practice Midwife | DX: Z12.4 Encounter for screening for malignant neoplasm of cervix (principal) ==

== ENCOUNTER → 2021-08-11 | Outpatient (CLI) | payer OTHER ==
[2021-08-11 09:56] LABS: HEMATOCRIT 42.9 % (36.0-47.0); HEMOGLOBIN 14.1 g/dl (12.0-15.5); MEAN CORPUSCULAR HEMOGLOBIN 29.2 pg (27.0-33.0); MEAN CORPUSCULAR HGB CONC 32.9 g/dl (32.0-36.5); MEAN CORPUSCULAR VOLUME 88.8 fl (80.0-96.0); PLATELET COUNT, AUTOMATED 245 10^3/uL (150-450); RED BLOOD COUNT 4.83 10^6/uL (4.00-5.40); WHITE BLOOD COUNT 8.6 10^3/uL (4.0-10.0)
[2021-08-11 10:34] LABS: THYROID STIMULATING HORMONE 1.49 uIU/ML (0.358-3.740)
[2021-08-11 21:20] LABS: PROLACTIN 6.4 NG/ML
== END ==
LOC: M LAB 09:16
PROVIDERS: ATTEND Advanced Practice Midwife
DX: N92.0 Excessive and frequent menstruation with regular cycle (principal); N95.1 Menopausal and female climacteric states; R63.5 Abnormal weight gain

== ENCOUNTER → 2021-11-25 | Outpatient (REF) | payer OTHER ==
[2021-11-25 14:25] LABS: APPEARANCE, URINE MANUAL CLEAR (CLEAR); COLOR, URINE MANUAL YELLOW (YELLOW)
[2021-11-25 14:26] LABS: SPECIFIC GRAVITY,URINE MANUAL 1.015 (1.002-1.035)
[2021-11-25 14:27] LABS: BILIRUBIN, URINE MANUAL NEGATIVE (NEGATIVE); BLOOD URINE MANUAL NEGATIVE (NEGATIVE); GLUCOSE, URINE (UA) MANUAL NEGATIVE (NEGATIVE); KETONE, URINE MANUAL 1+ mg/dL (NEGATIVE); NITRITE, URINE MANUAL NEGATIVE (NEGATIVE); PROTEIN, URINE MANUAL NEGATIVE (NEGATIVE); UROBILINOGEN, URINE MANUAL NORMAL (NORMAL)
[2021-11-25 14:28] LABS: LEUKOCYTE ESTERASE, URINE MAN POSITIVE (NEGATIVE)
[2021-11-25 14:45] LABS: BACTERIA, URINE MOD AMOUNT; MUCUS, URINE MOD AMOUNT (NEGATIVE); SQUAMOUS EPITHELIAL CELL URINE SMALL AMOUNT /hpf (SMALL AMT)
[2021-11-25 14:46] LABS: HYALINE CAST, URINE NONE SEEN /lpf (0-1); RBC, URINE NONE SEEN /hpf (0-3)
== END ==
LOC: M LAB REF 12:46
PROVIDERS: ATTEND Physician Assistant
DX: N39.0 Urinary tract infection, site not specified (principal)

== ENCOUNTER → 2021-12-01 | Outpatient (CLI) | payer OTHER ==
[2021-12-01 11:15] LABS: HEMATOCRIT 42.2 % (36.0-47.0); HEMOGLOBIN 13.7 g/dl (12.0-15.5); MEAN CORPUSCULAR HEMOGLOBIN 28.9 pg (27.0-33.0); MEAN CORPUSCULAR HGB CONC 32.5 g/dl (32.0-36.5); PLATELET COUNT, AUTOMATED 256 10^3/uL (150-450); RED BLOOD COUNT 4.74 10^6/uL (4.00-5.40); WHITE BLOOD COUNT 10.9 10^3/uL (4.0-10.0)
[2021-12-01 11:52] LABS: ALBUMIN 3.7 GM/DL (3.2-5.2); ALT/SGPT 28 U/L (12-78); BILIRUBIN,TOTAL 0.6 MG/DL (0.2-1.0); BLOOD UREA NITROGEN 7 MG/DL (7-18); C REACTIVE PROTEIN QUANTITATIV 1.13 MG/DL (0.00-0.30); CALCIUM LEVEL 9.3 MG/DL (8.5-10.1); CARBON DIOXIDE LEVEL 28 MEQ/L (21-32); CHLORIDE LEVEL 104 MEQ/L (98-107); CREATININE FOR GFR 0.72 MG/DL (0.55-1.30); GLOMERULAR FILTRATION RATE > 60.0 (>60); GLUCOSE, FASTING 98 MG/DL (70-100); SODIUM LEVEL 139 MEQ/L (136-145); TOTAL PROTEIN 7.5 GM/DL (6.4-8.2)
[2021-12-01 12:03] LABS: ERYTHROCYTE SEDIMENTATION RATE 29 mm/hr (0-20)
== END ==
LOC: M PLALAB 09:52
PROVIDERS: ATTEND Internal Medicine Gastroenterology
DX: K50.90 Crohn's disease, unspecified, without complications (principal); K59.09 Other constipation

== ENCOUNTER → 2021-12-13 | Outpatient (CLI) | payer OTHER ==
[2021-12-13 17:32] LABS: HEMATOCRIT 38.5 % (36.0-47.0); HEMOGLOBIN 12.6 g/dl (12.0-15.5); MEAN CORPUSCULAR HEMOGLOBIN 28.7 pg (27.0-33.0); MEAN CORPUSCULAR HGB CONC 32.7 g/dl (32.0-36.5); MEAN CORPUSCULAR VOLUME 87.7 fl (80.0-96.0); PLATELET COUNT, AUTOMATED 245 10^3/uL (150-450); RED BLOOD COUNT 4.39 10^6/uL (4.00-5.40); WHITE BLOOD COUNT 10.3 10^3/uL (4.0-10.0)
[2021-12-13 18:10] LABS: TOTAL PROTEIN,RANDOM URINE 14.2 MG/DL (0.0-12.0)
[2021-12-13 19:09] LABS: GC DNA AMPLIFICATION NEGATIVE (NEGATIVE)
[2021-12-13 20:17] LABS: ALT/SGPT 41 U/L (12-78); BILIRUBIN,TOTAL 0.4 MG/DL (0.2-1.0); GLOMERULAR FILTRATION RATE > 60.0 (>60); HIV 1&2 SCREEN CENTAUR NEGATIVE (NEGATIVE); LDH LACTATE DEHYDROGENASE 143 U/L (84-246); URIC ACID 3.5 MG/DL (2.6-6.0)
== END ==
LOC: M PLALAB 14:03
PROVIDERS: ATTEND Advanced Practice Midwife
DX: Z36.89 Encounter for other specified antenatal screening (principal)

== ENCOUNTER → 2022-02-10 | Outpatient (CLI) | payer OTHER | LOC: M WHC 07:48 | PROVIDERS: ATTEND Advanced Practice Midwife | DX: Z34.82 Encounter for supervision of other normal pregnancy, second trimester (principal); Z3A.18 18 weeks gestation of pregnancy ==

== ENCOUNTER → 2022-02-18 | Outpatient (REF) | payer OTHER ==
[2022-02-18 15:38] LABS: APPEARANCE, URINE MANUAL TURBID (CLEAR); COLOR, URINE MANUAL YELLOW (YELLOW)
[2022-02-18 15:39] LABS: BILIRUBIN, URINE MANUAL NEGATIVE (NEGATIVE); BLOOD URINE MANUAL NEGATIVE (NEGATIVE); GLUCOSE, URINE (UA) MANUAL NEGATIVE (NEGATIVE); KETONE, URINE MANUAL NEGATIVE (NEGATIVE); LEUKOCYTE ESTERASE, URINE MAN POSITIVE (NEGATIVE); NITRITE, URINE MANUAL NEGATIVE (NEGATIVE); PROTEIN, URINE MANUAL NEGATIVE (NEGATIVE); SPECIFIC GRAVITY,URINE MANUAL 1.025 (1.002-1.035); UROBILINOGEN, URINE MANUAL NORMAL (NORMAL)
[2022-02-18 15:51] LABS: AMORPHOUS SEDIMENT, URINE LARGE AMOUNT (NEGATIVE); BACTERIA, URINE NONE SEEN; CALCIUM OXALATE CRYSTALS,URINE SMALL AMOUNT /hpf; HYALINE CAST, URINE NONE SEEN /lpf (0-1); MUCUS, URINE SMALL AMOUNT (NEGATIVE); RBC, URINE NONE SEEN /hpf (0-3); SQUAMOUS EPITHELIAL CELL URINE SMALL AMOUNT /hpf (SMALL AMT); WBC, URINE 0-1 /hpf (0-3)
== END ==
LOC: M LAB REF 15:25
PROVIDERS: ATTEND Physician Assistant
DX: N39.0 Urinary tract infection, site not specified (principal)

== ENCOUNTER → 2022-03-07 | Outpatient (REF) | payer OTHER | LOC: M SFHCWAGY 13:10 | PROVIDERS: ATTEND Advanced Practice Midwife | DX: Z34.92 Encounter for supervision of normal pregnancy, unspecified, second trimester (principal) ==

== ENCOUNTER → 2022-03-13 | Outpatient (CLI) | payer OTHER | LOC: M WHC 07:06 | PROVIDERS: ATTEND Specialist | DX: Z34.92 Encounter for supervision of normal pregnancy, unspecified, second trimester (principal) ==

== ENCOUNTER → 2022-04-04 | Outpatient (CLI) | payer OTHER ==
[2022-04-04 14:39] LABS: HEMATOCRIT 37.8 % (36.0-47.0); HEMOGLOBIN 12.1 g/dl (12.0-15.5); MEAN CORPUSCULAR HEMOGLOBIN 28.3 pg (27.0-33.0); MEAN CORPUSCULAR VOLUME 88.5 fl (80.0-96.0); PLATELET COUNT, AUTOMATED 214 10^3/uL (150-450); RED BLOOD COUNT 4.27 10^6/uL (4.00-5.40); WHITE BLOOD COUNT 12.4 10^3/uL (4.0-10.0)
== END ==
LOC: M PLALAB 09:28
PROVIDERS: ATTEND Advanced Practice Midwife
DX: Z34.92 Encounter for supervision of normal pregnancy, unspecified, second trimester (principal)

== ENCOUNTER → 2022-04-04 | Outpatient (CLI) | payer OTHER ==
[2022-04-04 14:59] LABS: TOTAL PROTEIN,RANDOM URINE 35.1 MG/DL (0.0-14.0)
[2022-04-04 15:02] LABS: LDH LACTATE DEHYDROGENASE 210 U/L (120-246)
[2022-04-04 15:03] LABS: ALT/SGPT 14 U/L (7.0-40); AST/SGOT 23 U/L (<34); BILIRUBIN,TOTAL 0.5 MG/DL (0.3-1.2); CREATININE FOR GFR 0.53 MG/DL (0.55-1.30); GLOMERULAR FILTRATION RATE > 60.0 (>60)
[2022-04-04 15:08] LABS: URIC ACID 3.7 MG/DL (3.1-7.8)
[2022-04-04 15:15] LABS: CREATININE,RANDOM URINE 265.3 MG/DL
== END ==
LOC: M PLALAB 10:50
PROVIDERS: ATTEND Obstetrics & Gynecology
DX: O16.2 Unspecified maternal hypertension, second trimester (principal); L29.9 Pruritus, unspecified; Z3A.00 Weeks of gestation of pregnancy not specified

== ENCOUNTER → 2022-04-24 | Outpatient (CLI) | payer OTHER | LOC: M WHC 06:49 | PROVIDERS: ATTEND Obstetrics & Gynecology | DX: O99.613 Diseases of the digestive system complicating pregnancy, third trimester (principal); Z3A.30 30 weeks gestation of pregnancy ==

== ENCOUNTER 2022-05-04 15:06 | Emergency (ER) | payer OTHER ==
[~2022-05-04] VITALS: Ht 162.6 cm; Wt 94.4 kg
[2022-05-04 15:07] VITALS: BP 135/81
[2022-05-04] MEDS ORDERED: ACET-683 PO (15:32)
[2022-05-04] MEDS ORDERED: METO5TAB2 (15:32)
[2022-05-04] MEDS ORDERED: METOCLOPRAMIDE INJ 10MG/2ML VIAL IV ONE (22:10)
== END 2022-05-04 16:31 | disposition admitted as inpatient to this hospital (09) ==
LOC: M ED 15:06
DX: E86.0 Dehydration (principal); Z53.21 Procedure and treatment not carried out due to patient leaving prior to being seen by health care provider

== ENCOUNTER 2022-05-04 16:21 | Outpatient (CLI) | payer OTHER ==
[~2022-05-04] VITALS: Ht 162.6 cm; Wt 94.3 kg
[~2022-05-04 16:21] MED LIST changes: +ACET-683 PO; +METO5TAB2
[2022-05-04 16:49] VITALS: BP 126/70
[2022-05-04] MEDS ORDERED: HOME MED LIST COMPLETE! XX SCH (16:55)
[2022-05-04] MEDS ORDERED: LACTATED RINGER'S 1000 ML IV STA (17:27)
[2022-05-04] MEDS ORDERED: LR 1,000 ML IV SCH (17:30)
[2022-05-04 18:08] LABS: HEMOGLOBIN 10.8 g/dl (12.0-15.5); MEAN CORPUSCULAR HEMOGLOBIN 28.4 pg (27.0-33.0); MEAN CORPUSCULAR HGB CONC 32.7 g/dl (32.0-36.5); MEAN CORPUSCULAR VOLUME 86.8 fl (80.0-96.0); PLATELET COUNT, AUTOMATED 153 10^3/uL (150-450); WHITE BLOOD COUNT 6.2 10^3/uL (4.0-10.0)
[2022-05-04 18:35] VITALS: BP 115/64
[2022-05-04 18:42] LABS: ALBUMIN 2.9 G/DL (3.2-5.2); ALKALINE PHOSPHATASE 156 U/L (46-116); ALT/SGPT 22 U/L (7.0-40); AST/SGOT 46 U/L (<34); BILIRUBIN,TOTAL 0.6 MG/DL (0.3-1.2); BLOOD UREA NITROGEN < 5 MG/DL (9-23); CALCIUM LEVEL 8.1 MG/DL (8.5-10.1); CARBON DIOXIDE LEVEL 24 MMOL/L (20-31); CHLORIDE LEVEL 104 MMOL/L (98-107); CREATININE FOR GFR 0.54 MG/DL (0.55-1.30); GLOMERULAR FILTRATION RATE > 60.0 (>60); GLUCOSE, FASTING 77 MG/DL (60-100); POTASSIUM SERUM 3.8 MMOL/L (3.5-5.1); SODIUM LEVEL 137 MMOL/L (136-145); TOTAL PROTEIN 6.3 G/DL (5.7-8.2)
[2022-05-04] MEDS ORDERED: METOCLOPRAMIDE INJ 10MG/2ML VIAL IV ONE (22:10)
== END 2022-05-04 22:58 | disposition home or self-care (01) ==
LOC: M LDO 16:21
PROVIDERS: ATTEND Specialist
DX: O99.613 Diseases of the digestive system complicating pregnancy, third trimester (principal); K52.9 Noninfective gastroenteritis and colitis, unspecified; Z93.3 Colostomy status; Z3A.35 35 weeks gestation of pregnancy
CPT/HCPCS: 59025; 80053; 85027; 96374; G0463; J2765

== ENCOUNTER → 2022-05-09 | Outpatient (CLI) | payer OTHER ==
[2022-05-09 15:17] LABS: ALBUMIN 2.9 G/DL (3.2-5.2); ALKALINE PHOSPHATASE 212 U/L (46-116); ALT/SGPT 24 U/L (7.0-40); AST/SGOT 44 U/L (<34); BILIRUBIN,TOTAL 0.8 MG/DL (0.3-1.2); BLOOD UREA NITROGEN < 5 MG/DL (9-23); CALCIUM LEVEL 8.3 MG/DL (8.5-10.1); CARBON DIOXIDE LEVEL 25 MMOL/L (20-31); CHLORIDE LEVEL 104 MMOL/L (98-107); CREATININE FOR GFR 0.59 MG/DL (0.55-1.30); GLOMERULAR FILTRATION RATE > 60.0 (>60); GLUCOSE, FASTING 83 MG/DL (60-100); POTASSIUM SERUM 4.2 MMOL/L (3.5-5.1); SODIUM LEVEL 138 MMOL/L (136-145); TOTAL PROTEIN 6.6 G/DL (5.7-8.2)
== END ==
LOC: M PLALAB 10:16
PROVIDERS: ATTEND Internal Medicine Gastroenterology
DX: R21 Rash and other nonspecific skin eruption (principal); K50.90 Crohn's disease, unspecified, without complications; K52.9 Noninfective gastroenteritis and colitis, unspecified

== ENCOUNTER 2022-05-12 11:45 | Outpatient (CLI) | payer OTHER ==
[~2022-05-12] VITALS: Ht 162.6 cm; Wt 93.9 kg
[2022-05-12] MEDS ORDERED: LR 1,000 ML IV SCH (12:00)
[2022-05-12] MEDS ORDERED: LACTATED RINGER'S 1000 ML IV STA (12:00)
[2022-05-12] MEDS ORDERED: PROMETHAZINE 25MG/ML 1ML VIAL IV PRN (12:05)
[2022-05-12 12:10] VITALS: BP 141/65
[2022-05-12 13:00] VITALS: BP 116/71
[2022-05-12 13:01] LABS: HEMATOCRIT 33.7 % (36.0-47.0); HEMOGLOBIN 11.2 g/dl (12.0-15.5); MEAN CORPUSCULAR HEMOGLOBIN 28.1 pg (27.0-33.0); MEAN CORPUSCULAR HGB CONC 33.2 g/dl (32.0-36.5); MEAN CORPUSCULAR VOLUME 84.5 fl (80.0-96.0); PLATELET COUNT, AUTOMATED 181 10^3/uL (150-450); RED BLOOD COUNT 3.99 10^6/uL (4.00-5.40); WHITE BLOOD COUNT 9.1 10^3/uL (4.0-10.0)
[2022-05-12 13:08] LABS: APPEARANCE, URINE CLOUDY (CLEAR); BACTERIA, URINE AUTO 3+ (NEGATIVE); BILIRUBIN, URINE AUTO NEGATIVE (NEGATIVE); BLOOD, URINE BLOOD NEGATIVE (NEGATIVE); COLOR, URINE AMBER (YELLOW); GLUCOSE, URINE (UA) AUTO NEGATIVE (NEGATIVE); KETONE, URINE AUTO 2+ mg/dL (NEGATIVE); LEUKOCYTE ESTERASE, URINE AUTO 2+ (NEGATIVE); MUCUS, URINE SMALL (NEGATIVE); NITRITE, URINE AUTO NEGATIVE (NEGATIVE); PROTEIN, URINE AUTO 1+ mg/dL (NEGATIVE); RBC, URINE AUTO 4 /HPF (0-3); SQUAMOUS EPITHELIAL CELL UR AU 23 /HPF (0-6); UROBILINOGEN, URINE AUTO 0.2 mg/dL (0.0-2.0); WBC, URINE AUTO 7 /HPF (0-3)
[2022-05-12] MEDS ORDERED: HOME MED LIST COMPLETE! XX SCH (13:35)
[2022-05-12 14:45] VITALS: BP 114/59
[2022-05-12] MEDS ORDERED: MULTIVITAMIN -ADULT INJECTION 10 ML, THIAMINE INJection 100 MG, FOLIC ACID 1 MG in NS 1... IV ONE (16:00)
[2022-05-12 16:19] VITALS: BP 130/79
[2022-05-12 17:24] LABS: APPEARANCE, URINE CLEAR (CLEAR); BACTERIA, URINE AUTO 1+ (NEGATIVE); BILIRUBIN, URINE AUTO NEGATIVE (NEGATIVE); BLOOD, URINE BLOOD NEGATIVE (NEGATIVE); COLOR, URINE YELLOW (YELLOW); GLUCOSE, URINE (UA) AUTO NEGATIVE (NEGATIVE); KETONE, URINE AUTO 1+ mg/dL (NEGATIVE); LEUKOCYTE ESTERASE, URINE AUTO NEGATIVE (NEGATIVE); NITRITE, URINE AUTO NEGATIVE (NEGATIVE); PROTEIN, URINE AUTO NEGATIVE (NEGATIVE); RBC, URINE AUTO 0 /HPF (0-3); SPECIFIC GRAVITY URINE AUTO 1.004 (1.002-1.035); SQUAMOUS EPITHELIAL CELL UR AU 0 /HPF (0-6); UROBILINOGEN, URINE AUTO 0.2 mg/dL (0.0-2.0); WBC, URINE AUTO 0 /HPF (0-3)
[2022-05-12 17:55] VITALS: BP 132/65
== END 2022-05-12 18:53 | disposition home or self-care (01) ==
LOC: M LDO 11:45
PROVIDERS: ATTEND Obstetrics & Gynecology
DX: O26.893 Other specified pregnancy related conditions, third trimester (principal); O99.283 Endocrine, nutritional and metabolic diseases complicating pregnancy, third trimester; E86.0 Dehydration; O09.513 Supervision of elderly primigravida, third trimester; Z3A.31 31 weeks gestation of pregnancy
CPT/HCPCS: 59025; 81001; 85027; G0463; J3411

== ENCOUNTER → 2022-06-02 | Outpatient (CLI) | payer OTHER ==
[2022-06-02 14:36] LABS: HEMATOCRIT 34.9 % (36.0-47.0); HEMOGLOBIN 11.2 g/dl (12.0-15.5); MEAN CORPUSCULAR HEMOGLOBIN 27.3 pg (27.0-33.0); MEAN CORPUSCULAR HGB CONC 32.1 g/dl (32.0-36.5); MEAN CORPUSCULAR VOLUME 84.9 fl (80.0-96.0); PLATELET COUNT, AUTOMATED 204 10^3/uL (150-450); RED BLOOD COUNT 4.11 10^6/uL (4.00-5.40); WHITE BLOOD COUNT 10.5 10^3/uL (4.0-10.0)
[2022-06-02 15:04] LABS: URIC ACID 5.6 MG/DL (3.1-7.8)
[2022-06-02 15:05] LABS: CREATININE,RANDOM URINE 199.2 MG/DL
[2022-06-02 15:06] LABS: LDH LACTATE DEHYDROGENASE 173 U/L (120-246)
[2022-06-02 15:07] LABS: ALT/SGPT 16 U/L (7.0-40); AST/SGOT 20 U/L (<34); BILIRUBIN,TOTAL 0.6 MG/DL (0.3-1.2); CREATININE FOR GFR 0.63 MG/DL (0.55-1.30); GLOMERULAR FILTRATION RATE > 60.0 (>60)
== END ==
LOC: M PLALAB 11:05
PROVIDERS: ATTEND Obstetrics & Gynecology
DX: O13.3 Gestational [pregnancy-induced] hypertension without significant proteinuria, third trimester (principal); Z3A.00 Weeks of gestation of pregnancy not specified

== ENCOUNTER → 2022-06-06 | Outpatient (REF) | payer OTHER | LOC: M PLALAB 10:13 | PROVIDERS: ATTEND Advanced Practice Midwife | DX: Z34.80 Encounter for supervision of other normal pregnancy, unspecified trimester (principal) ==

== ENCOUNTER 2022-06-17 09:37 | Inpatient (IN) | payer OTHER ==
[2022-06-17] VITALS (10 sets, daily range): BP systolic 121–167; BP diastolic 59–93
[~2022-06-17] VITALS: Ht 162.6 cm; Wt 95.0 kg
[2022-06-17] MEDS ORDERED: CARBOPROST TROMETHAMINE 250 MCG/ML AMP IM PRN (09:50)
[2022-06-17] MEDS ORDERED: OXYTOCIN DRIP 30 UNITS in IV 1 EA IV PRN ×4 (09:50)
[2022-06-17] MEDS ORDERED: LACTATED RINGER'S 1000 ML IV PRN (09:50)
[2022-06-17] MEDS ORDERED: TRANEXAMIC ACID INJection 1,000 MG in NS 100 ML IV PRN (09:50)
[2022-06-17] MEDS ORDERED: METHYLERGONOVINE MALEATE 0.2MG/ML 1ML VIAL IM PRN (09:50)
[2022-06-17] MEDS ORDERED: ASPI81CH33 PO (09:55)
[2022-06-17] MEDS ORDERED: REGL5TAB2 PO (09:56)
[2022-06-17] MEDS ORDERED: HOME MED LIST COMPLETE! XX SCH (10:00)
[2022-06-17 10:14] LABS: HEMATOCRIT 34.9 % (36.0-47.0); HEMOGLOBIN 11.4 g/dl (12.0-15.5); MEAN CORPUSCULAR HEMOGLOBIN 26.7 pg (27.0-33.0); MEAN CORPUSCULAR HGB CONC 32.7 g/dl (32.0-36.5); MEAN CORPUSCULAR VOLUME 81.7 fl (80.0-96.0); PLATELET COUNT, AUTOMATED 219 10^3/uL (150-450); RED BLOOD COUNT 4.27 10^6/uL (4.00-5.40); WHITE BLOOD COUNT 11.2 10^3/uL (4.0-10.0)
[2022-06-17 10:44] LABS: ALBUMIN 2.9 G/DL (3.2-5.2); ALKALINE PHOSPHATASE 223 U/L (46-116); ALT/SGPT 13 U/L (7.0-40); AST/SGOT 36 U/L (<34); BILIRUBIN,TOTAL 0.6 MG/DL (0.3-1.2); BLOOD UREA NITROGEN 6 MG/DL (9-23); CALCIUM LEVEL 8.7 MG/DL (8.5-10.1); CARBON DIOXIDE LEVEL 21 MMOL/L (20-31); CHLORIDE LEVEL 105 MMOL/L (98-107); CREATININE FOR GFR 0.58 MG/DL (0.55-1.30); GLOMERULAR FILTRATION RATE > 60.0 (>60); GLUCOSE, FASTING 93 MG/DL (60-100); POTASSIUM SERUM 3.9 MMOL/L (3.5-5.1); SODIUM LEVEL 137 MMOL/L (136-145)
[2022-06-17] MEDS ORDERED: miSOPROStol 50MCG 1/2 TABLET XX ONE (12:15)
[2022-06-17] MEDS ORDERED: CALCIUM CARBONATE 500 MG CHEW U/D PO ONE (13:15)
[2022-06-17] MEDS ORDERED: OXYTOCIN DRIP 30 UNITS in IV 1 EA IV SCH (18:05)
[2022-06-17] MEDS ORDERED: LR 1,000 ML IV SCH (18:25)
[2022-06-18] MEDS ORDERED: NALOXONE INJ 0.4MG/1ML VIAL IV PRN
[2022-06-18] MEDS ORDERED: diphenhydrAMINE 50MG/ML VIAL IV PRN
[2022-06-18] MEDS ORDERED: ePHEDrine SULFATE 25 MG/5 ML(5MG/ML) SYRINGE IVP PRN
[2022-06-18] MEDS ORDERED: LR 500 ML IV PRN
[2022-06-18] MEDS ORDERED: EPIDURAL/PCA KEYS XX PRN
[2022-06-18] MEDS ORDERED: FENTANYL/ROPIVACAINE/NACL BAG 100 ML EPIDURAL SCH
[2022-06-18] MEDS ORDERED: LIDOCAINE 1% MDV 20ML VIAL As Ordered ONE (02:17)
[2022-06-18] MEDS ORDERED: DOCUSATE SODIUM 100MG CAPSULE PO PRN (02:55)
[2022-06-18] MEDS ORDERED: METHYLERGONOVINE MALEATE 0.2 MG TAB PO PRN (02:55)
[2022-06-18] MEDS ORDERED: IBUPROFEN 600MG TAB PO PRN (02:55)
[2022-06-18] MEDS ORDERED: DIBUCAINE 1% OINTMENT 30GM TOP PRN (02:55)
[2022-06-18] MEDS ORDERED: RHOGAM 300MCG (1500IU) INJ IM SCH (02:55)
[2022-06-18] MEDS: ACETAMINOPHEN 500 MG TAB PO PRN ×2 (03:36→15:28)
[2022-06-18 05:57] VITALS: BP 119/63
[2022-06-18] MEDS: PRENATAL VITAMINS CHEWABLE TABLET PO SCH (09:54)
[2022-06-18 18:00] VITALS: BP 124/68
[2022-06-19] MEDS: ACETAMINOPHEN 500 MG TAB PO PRN (01:52)
[2022-06-19 06:00] VITALS: BP 104/67
[2022-06-19] MEDS: PRENATAL VITAMINS CHEWABLE TABLET PO SCH (08:36)
[2022-06-20] MEDS ORDERED: MEASLES,MUMPS,RUBELLA VACCINE INJ (MMR-II) SC.IMMUN ONE (09:00)
== END 2022-06-19 14:10 | disposition home or self-care (01) | DRG 560 ==
LOC: M LDI 09:37 → M OBS 06-18 04:26
PROVIDERS: ADMIT Obstetrics & Gynecology; ATTEND Obstetrics & Gynecology
PROC: 3E0P7GC Introduction of Other Therapeutic Substance into Female Reproductive, Via Natural or Artificial Opening (ICD-10-PCS; 2022-06-17)
PROC: 10E0XZZ Delivery of Products of Conception, External Approach (ICD-10-PCS; principal; 2022-06-18)
PROC: 0HQ9XZZ Repair Perineum Skin, External Approach (ICD-10-PCS; 2022-06-18)
DX: O13.4 Gestational [pregnancy-induced] hypertension without significant proteinuria, complicating childbirth (principal); O32.6XX0 Maternal care for compound presentation, not applicable or unspecified; Z3A.37 37 weeks gestation of pregnancy; O70.0 First degree perineal laceration during delivery; Z37.0 Single live birth

== ENCOUNTER → 2023-02-27 | Outpatient (CLI) | payer OTHER ==
[~2023-02-27] MED LIST changes: +ASPI81CH33 PO
[2023-02-27 16:09] LABS: BASO # 0.1 10^3/uL (0.0-0.2); BASO % 0.8 % (0.0-1.0); EOS # 0.2 10^3/uL (0.0-0.5); EOS % 2.2 % (0.0-3.0); HEMATOCRIT 41.9 % (36.0-47.0); HEMOGLOBIN 13.4 g/dl (12.0-15.5); LYMPH % 30.1 % (24.0-44.0); MEAN CORPUSCULAR HEMOGLOBIN 27.9 pg (27.0-33.0); MEAN CORPUSCULAR VOLUME 87.3 fl (80.0-96.0); MONO # 0.4 10^3/uL (0.0-0.8); MONO % 3.8 % (2.0-8.0); NEUTROPHILS # 6.3 10^3/uL (1.5-8.5); NEUTROPHILS % 62.8 % (36.0-66.0); PLATELET COUNT, AUTOMATED 291 10^3/uL (150-450)
[2023-02-27 16:30] LABS: C REACTIVE PROTEIN QUANTITATIV < 0.40 MG/DL (<1.0); ERYTHROCYTE SEDIMENTATION RATE 51 mm/hr (0-20)
[2023-02-27 16:31] LABS: ALKALINE PHOSPHATASE 114 U/L (46-116); ALT/SGPT 19 U/L (7.0-40); AST/SGOT 30 U/L (<34); BILIRUBIN,TOTAL 0.6 MG/DL (0.3-1.2); BLOOD UREA NITROGEN 9 MG/DL (9-23); CALCIUM LEVEL 9.1 MG/DL (8.5-10.1); CARBON DIOXIDE LEVEL 28 MMOL/L (20-31); CHLORIDE LEVEL 104 MMOL/L (98-107); CREATININE FOR GFR 0.62 MG/DL (0.55-1.30); GLOMERULAR FILTRATION RATE > 60.0 (>58); GLUCOSE, FASTING 122 MG/DL (60-100); MAGNESIUM LEVEL 1.9 MG/DL (1.8-2.4); POTASSIUM SERUM 3.6 MMOL/L (3.5-5.1); SODIUM LEVEL 139 MMOL/L (136-145)
[2023-02-27 16:35] LABS: TOTAL 25(OH) VITAMIN D 22.6 NG/ML (20.0-100.0); VITAMIN B12 LEVEL 371 PG/ML (211-911)
[2023-03-01 13:07] LABS: ANTI DOUBLE STRAND-DNA AB 1 IU/mL (0-9); ANTINUCLEAR ANTIBODIES DIRECT Positive (Negative); RNP ANTIBODIES >8.0 AI (0.0-0.9); SJOGREN'S ANTI SS-A <0.2 AI (0.0-0.9); SJOGREN'S ANTI SS-B <0.2 AI (0.0-0.9); SMITH ANTIBODIES <0.2 AI (0.0-0.9)
== END ==
LOC: M PLALAB 13:29
PROVIDERS: ATTEND Internal Medicine Gastroenterology
DX: K50.90 Crohn's disease, unspecified, without complications (principal); L40.50 Arthropathic psoriasis, unspecified

== ENCOUNTER → 2024-09-24 | Outpatient (CLI) | payer OTHER ==
[2024-09-24 17:23] LABS: PLATELET COUNT, AUTOMATED 291 10^3/uL (150-450)
[2024-09-24 18:19] LABS: Trichomonas vaginalis (AMP) NOT DETECTED (NEGATIVE)
[2024-09-24 18:43] LABS: GC DNA AMPLIFICATION NEGATIVE (NEGATIVE)
[2024-09-24 20:33] LABS: HEPATITIS C VIRUS ABY INDEX 0.03 INDEX (<0.8); HIV 1&2 SCREEN NEGATIVE (NEGATIVE)
== END ==
LOC: M PLALAB 13:05
PROVIDERS: ATTEND Advanced Practice Midwife
DX: Z34.01 Encounter for supervision of normal first pregnancy, first trimester (principal)

== ENCOUNTER → 2024-09-26 | Outpatient (CLI) | payer OTHER | LOC: M WHC 14:44 | PROVIDERS: ATTEND Advanced Practice Midwife | DX: Z36.87 Encounter for antenatal screening for uncertain dates (principal); Z3A.08 8 weeks gestation of pregnancy; O20.8 Other hemorrhage in early pregnancy ==

== ENCOUNTER → 2024-11-18 | Outpatient (REF) | payer OTHER | LOC: M SFHCWAGY 12:53 | PROVIDERS: ATTEND Obstetrics & Gynecology | DX: Z34.92 Encounter for supervision of normal pregnancy, unspecified, second trimester (principal) ==

== ENCOUNTER → 2024-11-18 | Outpatient (CLI) | payer OTHER | LOC: M WHC 11:23 | PROVIDERS: ATTEND Obstetrics & Gynecology | DX: Z34.92 Encounter for supervision of normal pregnancy, unspecified, second trimester (principal); Z53.9 Procedure and treatment not carried out, unspecified reason ==

== ENCOUNTER → 2024-12-11 | Outpatient (CLI) | payer OTHER | LOC: M WHC 12:36 | PROVIDERS: ATTEND Obstetrics & Gynecology | DX: Z34.92 Encounter for supervision of normal pregnancy, unspecified, second trimester (principal); Z3A.20 20 weeks gestation of pregnancy ==

== ENCOUNTER → 2025-01-07 | Outpatient (CLI) | payer OTHER | LOC: M WHC 09:15 | PROVIDERS: ATTEND Obstetrics & Gynecology | DX: O09.522 Supervision of elderly multigravida, second trimester (principal) ==

== ENCOUNTER → 2025-01-09 | Outpatient (CLI) | payer OTHER ==
[2025-01-09 14:48] LABS: PLATELET COUNT, AUTOMATED 228 10^3/uL (150-450)
[2025-01-09 15:19] LABS: GLUCOSE CHALLENGE TEST 1 HOUR 79 MG/DL (LESS THAN 140)
[2025-01-09 15:48] LABS: Trichomonas vaginalis (AMP) NOT DETECTED (NEGATIVE)
[2025-01-09 15:51] LABS: HIV 1&2 SCREEN NEGATIVE (NEGATIVE)
[2025-01-09 15:59] LABS: HEPATITIS C VIRUS ABY INDEX 0.02 INDEX (<0.8)
[2025-01-09 16:11] LABS: GC DNA AMPLIFICATION NEGATIVE (NEGATIVE)
== END ==
LOC: M PLALAB 11:14
PROVIDERS: ATTEND Obstetrics & Gynecology
DX: O09.522 Supervision of elderly multigravida, second trimester (principal)